=== PATIENT | female | born 1940 | race Caucasian/White ===

== ENCOUNTER 2016-09-30 14:47 | Inpatient (IN) | payer MEDICARE ==
--- NOTE | ~2016-09-30 | CN ---
Consultation Report [facility] [address] [place]. [address] NAME: ODILON SMITH : 42 STATUS : ADM IN [facility]#: [id number] AGE: 76 ADM/REG DATE : 09/30/16 MR#: [id number] REPORT SERV DATE: 10/02/16 DICTATED BY: SILVIANO ESQUIVEL DATE: 10/02/16 REPORT STATUS : Draft TRANSCRIBED BY: MODL DATE: 10/02/16 INFECTIOUS DISEASE CONSULTATION DATE OF CONSULTATION: 10/02/2016 REASON FOR CONSULTATION: Antibiotic recommendations. HISTORY OF PRESENT ILLNESS: This is a 76-year-old female with a past medical history notable for nonischemic cardiomyopathy, atrial fibrillation/flutter, Parkinson disease, diabetes, chronic kidney disease, and gastroesophageal reflux. She was admitted to the hospital on 09/30/2016 because of progressive redness, swelling and cellulitis changes of her right 2nd toe, nonresponsive to outpatient Augmentin. She says she had some chills as an outpatient, but no definite fevers. She had an x-ray of the foot on admission, which showed no evidence of osteomyelitis, but has been evaluated by Dr. Olivas of Orthopedics, who notes that she has a dorsal ulceration with exposed bone and plans for amputation of the toe this afternoon. The patient was placed on IV vancomycin on admission. She has been afebrile and has a normal white blood cell count. There is a cellulitis also of the foot as outlined below and a question of cellulitis of the lower leg. Of note, the patient also was found to have C. colitis back in May of this year. She tells me she has had no recent diarrhea problems. PAST MEDICAL HISTORY: As outlined above. In addition, she has bilateral total knee arthroplasties and right total hip arthroplasty. Other diagnoses include Raynaud syndrome, chronic pain on opioids, and osteoporosis and anxiety and depression. ALLERGIES: MULTIPLE ANTIBIOTIC ALLERGIES AND INTOLERANCES, BUT THE ONLY ANTIBIOTIC LISTED ERYTHROMYCIN. PRESENT MEDICATIONS: Here in the hospital in addition to IV vancomycin include Symmetrel, Cordarone, Caltrate, vitamin D, Sinemet, Cymbalta, Zetia, Pepcid, Lasix, Neurontin, insulin, Toprol, Percocet, Claritin, Protonix, Florastor or Spiriva. SOCIAL HISTORY: She lives in assisted living, is , ex-smoker nondrinker. FAMILY HISTORY: Noncontributory. REVIEW OF SYSTEMS: Again denies any diarrhea at present. No nausea or vomiting. Pain well controlled at present. PHYSICAL EXAMINATION: VITAL SIGNS: The patient weighs 79 kg. She is afebrile. Blood pressure 133/55, pulse 52, respiratory rate 14. She weighs 79 kg. Oxygen saturation 97% on 2 L. HEAD AND NECK: Exam is unremarkable. Consultation Report [address] [place]. [address] NAME: ODILON SMITH : 42 STATUS : ADM IN PAT#: [id number] AGE: 76 ADM/REG DATE : 09/30/16 MR#: [id number] REPORT SERV DATE: 10/02/16 DICTATED BY: SILVIANO ESQUIVEL DATE: 10/02/16 REPORT STATUS : Draft TRANSCRIBED BY: LUZMARIA DATE: 10/02/16 LUNGS: Clear to auscultation anteriorly. CARDIAC: Exam is without murmur, gallop, or rub. ABDOMEN: Obese, soft, and nontender. EXTREMITIES: The right second toe has diffuse edema and erythema with an ulcer. There are mild cellulitic changes on the dorsum of the foot at the base of the second toe extending somewhat more proximally onto the foot. The both lower legs have some chronic stasis changes. There is an irregular area of dark erythema of the right lower leg with a normal appearing skin between it and the foot and with somewhat similar changes on the left lower leg. There is mild warmth associated with this. She has a peripheral IV without phlebitis. LABORATORY STUDIES: Show a white blood cell count of 4.8, hemoglobin 12.1, platelets 158. Creatinine 1.05. Albumin 2.8. Liver function tests normal. Blood cultures on admission negative. IMPRESSION: Osteomyelitis of the right second toe with some mild associated cellulitis of the dorsum of the foot. The patient also has an area of erythema of the right lower leg, but I am not convinced. This is active infectious cellulitis given the patchy nature of it and the normal-appearing skin between it and the toe and foot. The patient also has history of C. diff colitis in May and has bilateral knee arthroplasties and hip arthroplasty. She is however non-ambulatory and gets around in a wheelchair. PLAN: 1. We will continue the IV vancomycin through her amputation later today. 2. I will discuss postoperative antibiotic options with Dr. Figueredo, in light of her recent C. diff colitis and the uncertainty of active cellulitis in the leg itself. In addition, her disposition after discharge may play a role in determining the best option for her. I do not think she needs a very long course of postoperative antibiotics. JUDY/LUZMARIA Silviano Esquivel M.D. / [id number] CC: Blank Borrero M.D.
--- NOTE | ~2016-09-30 | OP ---
Record Of Operation [facility] [address] [place]. [address] NAME: ESTHER MEJIA : 42 STATUS : ADM IN PAT#: [id number] AGE: 76 ADM/REG DATE : 09/30/16 MR#: [id number] REPORT SERV DATE: 10/03/16 DICTATED BY: MELA SHIELDS DATE: 10/03/16 REPORT STATUS : Draft TRANSCRIBED BY: MODAlcira DATE: 10/03/16 DATE OF PROCEDURE: 10/02/2016 PREOPERATIVE DIAGNOSES: 1. Right second toe osteomyelitis. 2. Right second rigid hammertoe. 3. Right chronic dorsal PIP joint ulceration. POSTOPERATIVE DIAGNOSES: 1. Right second toe osteomyelitis. 2. Right second rigid hammertoe. 3. Right chronic dorsal PIP joint ulceration. PROCEDURE: Right second toe amputation at the MTP joint. ANESTHESIA: General. COMPLICATIONS: None. INDICATION FOR OPERATION: Esther Mejia is a pleasant 76-year-old female, failed conservative treatment for the above-mentioned condition. Risks and benefits of surgical intervention were discussed at length with the patient. All of her questions were answered. She wished to proceed. DESCRIPTION OF PROCEDURE: Mrs. Mejia was brought back to the operating room, where general anesthesia was initiated. Right lower extremity was prepped and draped in usual sterile fashion. Esmarch ankle tourniquet was utilized. Proposed surgical incisions were drawn on the skin. This was an "elliptical incision" at the base of the toe. This was made proximal to the dorsal ulceration where we felt that the soft tissue was healthy. The incision was carried down to bone. We carefully disarticulated the toe at the MTP joint. The toe was placed on the back table. Tissue was taken from the area of infected bone and soft tissue. This was sent for culture. At this time, the tourniquet was removed and local vessels were cauterized. Subcutaneous tissue and skin were closed in a single layer with interrupted 2-0 nylon suture. Bulky sterile dressings were applied and a well-padded forefoot dressing was placed. The patient did well throughout the case. She woke in the operating room and was transferred to the recovery room in satisfactory condition. EVELYN/LUZMARIA Mlea Shields MD / [id number] Record Of [address] [place] [address] NAME: ESTHER MEJIA : 42 STATUS : ADM IN PAT#: [id number] AGE: 76 ADM/REG DATE : 09/30/16 MR#: [id number] REPORT SERV DATE: 10/03/16 DICTATED BY: MELA SHIELDS DATE: 10/03/16 REPORT STATUS : Draft TRANSCRIBED BY: MODL DATE: 10/03/16 CC: Blank Borrero M.D.
--- NOTE | ~2016-09-30 | CN ---
Consultation Report [facility] [address] [place]. [address] NAME: ESTHER MEJIA : 42 STATUS : ADM IN PAT#: [id number] AGE: 76 ADM/REG DATE : 09/30/16 MR#: [id number] REPORT SERV DATE: 10/02/16 DICTATED BY: MELA SHIELDS DATE: 10/02/16 REPORT STATUS : Draft TRANSCRIBED BY: MODAlcira DATE: 10/02/16 ORTHOPEDIC FOOT AND ANKLE CONSULTATION DATE OF CONSULTATION: 10/01/2016 REASON FOR CONSULTATION: Right second toe ulceration. HISTORY OF PRESENT ILLNESS: Esther Mejia is a pleasant 76-year-old female with past medical history significant for nonischemic cardiomyopathy, atrial fibrillation/flutter, Parkinson disease, diabetes with neuropathy, chronic kidney disease, GERD. Of note, she has also had left second toe amputation. She noted an ulceration on the dorsal aspect of her right second toe. This is a rigid hammertoe. This is an ulceration that currently extends down to bone. She states that at least over the past four to six weeks nonoperative treatment has been unsuccessful in treating this ulceration. She states that similar symptoms happened on her left foot for which she underwent operation. She has had no definitive fevers but admitted some chills as an outpatient. No additional complaints are noted. The patient has some cellulitis of the toe as well as the foot. There is also an area of relatively normal skin, which in more proximal to the normal skin is hyperpigmentation/cellulitic changes in the "gaiter" region of her lower leg. Of note, the patient had clostridium difficile colitis in 05/2016. No recent diarrhea problems. PAST MEDICAL HISTORY: See above. Bilateral total knee arthroplasty, right total hip, Raynaud syndrome, chronic pain, management requiring opioids, osteoporosis, anxiety, and depression. ALLERGIES: MULTIPLE ANTIBIOTIC ALLERGIES AND INTOLERANCES BUT THE ONLY ANTIBIOTIC LISTED IS ERYTHROMYCIN. MEDICATIONS: Current medications in the hospital included IV vancomycin, Symmetrel, Cordarone, Caltrate, vitamin D, Sinemet, Cymbalta, Zetia, Pepcid, Lasix, Neurontin, insulin, Toprol, Percocet, Claritin, Protonix, Florastor, and Spiriva. SOCIAL HISTORY: Lives in assisted living. She is she is an ex-smoker and nondrinker. FAMILY HISTORY: Noncontributory. REVIEW OF SYSTEMS: She is currently denying fevers, chills, nausea, vomiting, abdominal pain, shortness of breath, or chest pain. Consultation Report [place] [address] [place] [address] NAME: ESTHER MEJIA : 42 STATUS : ADM IN [facility]#: [id number] AGE: 76 ADM/REG DATE : 09/30/16 MR#: [id number] REPORT SERV DATE: 10/02/16 DICTATED BY: MELA SHIELDS DATE: 10/02/16 REPORT STATUS : Draft TRANSCRIBED BY: LUZMARIA DATE: 10/02/16 PHYSICAL EXAMINATION: VITAL SIGNS: Reveals that she is afebrile with temperature 98.3, pulse 57, respirations 20. She is 94% on room air. Her BMI is 26. GENERAL: She is alert and oriented x3. She is lying in the hospital bed and comfortable. HEENT: Her head is atraumatic. Pupils are equal to light and reactive. CHEST: Nonlabored breathing. HEART: Regular rhythm. ABDOMEN: Obese. EXTREMITIES: Cervical spine nontender to gentle range of motion. Bilateral upper extremities nontender to gentle range of motion. Bilateral lower extremities reveals no tenderness with gentle range of motion. Left lower extremity shows status post amputation of left second toe. No cellulitis. There is a left lateral heel ulceration. This approximately 4 to 5 cm in diameter. There is partial thickness. There is no exposed subcutaneous tissue, deep fascia or bone. This is on the posterior lateral aspect of her left heel. Right foot reveals a markedly edematous and erythematous right second toe. There is a rigid hammertoe deformity. There is a dorsal ulceration with exposed second metatarsal head. This is easily probes down to bone. There is some soft tissue in the wound. There is scant purulence. There is some erythema involving the dorsum of the foot. There is an area of relatively normal appearing skin over the ankle region. More proximal is in the "gaiter" region, there is a hyperpigmentation and what is quite frankly a cellulitic appearance. This stops at below the knee. X-RAYS: X-rays taken included 3 views of the right foot. It shows retrocalcaneal spur. No evidence of second toe osteomyelitis. LABS: Reveal white count of 5.4, hemoglobin 12. IMPRESSION: 1. Diabetes mellitus with neuropathy. 2. Right chronic second toe ulceration with exposed bone. 3. Right rigid second hammertoe. 4. Left lateral heel ulceration. PLAN: Lengthy discussion with the patient regarding her diagnosis and treatment options. On the right second toe, I recommend right second toe amputation. I did not feel that she will be capable of healing this as she has already failed an initial course of nonsurgical intervention. Due to the rigid nature of this toe and the exposed bone, I have recommended a right second MTP amputation. She has a palpable dorsalis pedis pulse. I suspect it should have ample blood supply to heal this amputation at this level. On the left heel, I recommended decubitus precautions with a heel offloading boot. Orders for this were given. Wound care nurse consultation was obtained and we will follow their instructions. Consultation Report [place] [id number] [facility] [address] [place]. [address] NAME: ESTHER MEJIA : 42 STATUS : ADM IN [facility]#: [id number] AGE: 76 ADM/REG DATE : 09/30/16 MR#: [id number] REPORT SERV DATE: 10/02/16 DICTATED BY: MELA SHIELDS DATE: 10/02/16 REPORT STATUS : Draft TRANSCRIBED BY: LUZMARIA DATE: 10/02/16 I had a lengthy discussion with the patient regarding all of these treatment options. All of her questions were thoroughly answered, and she wished to proceed with right second MTP joint level amputation. I appreciate the opportunity to participate in the care of this patient. Please feel free to call me on my cell phone at [phone] with additional questions or concerns. EVELYN/LUZMARIA Mela Shields MD / [id number] CC: Blank Borrero M.D.
--- NOTE | ~2016-09-30 | HP ---
History And Physical [place] [id number] [facility] [place]. [address] NAME: ODILON SMITH : 42 STATUS : ADM IN [facility]#: [id number] AGE: 76 ADM/REG DATE : 09/30/16 MR#: [id number] REPORT SERV DATE: 10/05/16 DICTATED BY: RAMYA BLANK DATE: 10/04/16 REPORT STATUS : Draft TRANSCRIBED BY: MODAlcira DATE: 10/04/16 DATE OF ADMISSION: 09/30/2016 CHIEF COMPLAINT: Right foot and leg cellulitis. HISTORY OF PRESENT ILLNESS: This is a 76-year-old female, who is a [employer] participant, who presented to the clinic with redness then warmth in the right foot and right leg. She had been seen earlier in the week and had been started on Augmentin to try to treat the cellulitis. The patient has a right second toe wound which has been ongoing for a few weeks. Since she failed treatment with Augmentin as an outpatient, she has been admitted to the hospital for IV antibiotics. PAST MEDICAL HISTORY: 1. Includes atrial fibrillation, paroxysmal. She is currently on anticoagulation with Eliquis for the same. 2. Nonischemic cardiomyopathy. Ejection fraction 40%. 3. Type 2 diabetes mellitus. 4. Chronic kidney disease stage 3. 5. Parkinson's disease. 6. Gastroesophageal reflux with a large hiatal hernia. 7. Chronic pain, on high dose opioids. 8. Anxiety and depression. 9. Osteoporosis. FAMILY HISTORY: Noncontributory. SOCIAL HISTORY: The patient currently lives at an assisted living facility. She is a nonsmoker, does not drink alcohol, and is . REVIEW OF SYSTEMS: She denied any recent changes in weight. No changes in appetite. No history of vision impairment or hearing loss recently. No swallowing difficulties. No complaints of chest pain. No complaints of shortness of breath. No complaints of palpitations. No complaints of abdominal pain, nausea, vomiting, constipation, or diarrhea. ALLERGIES: INCLUDE LESCOL AND SIMVASTATIN, WHICH CAUSE MYALGIA AND WEAKNESS; ERYTHROMYCIN, WHICH CAUSES STOMACH UPSET; MS CONTIN, WHICH LEADS TO PRURITUS; LISINOPRIL, WHICH CAUSES HYPERKALEMIA AND RENAL DYSFUNCTION; DITROPAN, WHICH LEADS TO HESITANCY. MEDICATION LIST: Includes: Align 1 tablet daily; amantadine 100 mg q.p.m.; amiodarone 200 mg twice a day; Artificial Tears p.r.n.; Augmentin 875 mg twice a day; Breo Ellipta 200/25 mcg 1 puff daily; cyclobenzaprine 5 mg 1 tablet daily; Cymbalta 60 mg 1 tablet twice a day; Dexilant 30 mg daily; DuoNeb p.r.n.; Eliquis 5 mg twice a day; Flonase 1 spray daily; Glutose gel 45 g 1 tube as needed p.r.n.; Incruse Ellipta 62.5 mcg 1 puff inhaler daily; potassium chloride 20 mEq daily; Lasix 40 mg 1 tablet daily; metformin 500 mg 2 tablets twice a day; Neurontin 400 mg 1 tablet 3 times a day; Percocet 5/325, 2 tablets 3 times History And Physical [address] [address] NAME: ODILON SMITH : 42 STATUS : ADM IN [facility]#: [id number] AGE: 76 ADM/REG DATE : 09/30/16 MR#: [id number] REPORT SERV DATE: 10/05/16 DICTATED BY: RAMYA BLANK DATE: 10/04/16 REPORT STATUS : Draft TRANSCRIBED BY: LUZMARIA DATE: 10/04/16 daily; Percocet 7.5 mg 2 tablets at bedtime; ranitidine 300 mg at bedtime; Sinemet 25/100 one tablet 3 times a day; Toprol-XL 100 mg 1 tablet daily; Viactiv twice a day; Zetia 10 mg daily; Zofran 4 mg q.8 hours p.r.n.; and Zyrtec 10 mg at bedtime. PHYSICAL EXAMINATION: VITAL SIGNS: Temperature 98, pulse 54, blood pressure 134/64, respirations 18, oxygen saturation was 94% on room air. GENERAL: Elderly, obese lady, lying in bed, in no acute distress. HEENT: No icterus or conjunctival injection noted. Head was normocephalic, atraumatic. NECK: Obese with restricted range of motion. LUNGS: Clear to auscultation. CARDIOVASCULAR: Regular rate and rhythm at this time. ABDOMEN: Soft, nontender, nondistended. Bowel sounds were present. EXTREMITIES: Right foot cellulitis with erythema and warmth extending onto lower leg too. There is a right second toe wound about 7 to 8 mm with some slough/purulent discharge in the bed and surrounding erythema and induration. Left heel also has a wound, which is a stage II pressure ulcer and is about 1 cm x 1 cm with small amount of serosanguineous discharge. Wound bed looks healthy. There is no surrounding erythema or inflammation. NEUROLOGIC: No tremor noted at this time. No cogwheeling or rigidity. She does have generalized weakness and is able to transfer from bed to power chair at baseline. LABORATORY DATA: Sodium 136, potassium 3.7, chloride 98, BUN 15, creatinine 0.97, glucose 149, calcium 8.6. WBCs 5.4, hemoglobin 12, hematocrit 37.7, platelets 155. did not reveal any acute injury. There was some tendinosis noted on the x-ray. ASSESSMENT AND PLAN: 1. Right foot and lower extremity cellulitis, likely secondary to the right second toe wound. This toe is a hammertoe. I will go ahead and get Podiatry to see her. This wound has been longstanding and has not been healing. It may be hard to heal just from its position on the dorsal aspect of the hammertoe. X-ray did not reveal osteomyelitis. We will also consult Infectious Diseases in the morning. Currently, the patient is on vancomycin, which was started last night on admission through the emergency room. 2. Paroxysmal atrial fibrillation. The patient is on anticoagulation with Eliquis. We will continue the same at this time. 3. Parkinson's disease. Continue current medications. 4. Diabetes mellitus. We will place her on sliding scale insulin and Accu-Cheks. 5. Congestive heart failure is compensated at this time. 6. Chronic pain. We will continue her home doses of Percocet and gabapentin. 7. Anxiety and depression. Continue current medications including Cymbalta. CODE STATUS: DNR, limited additional interventions. History And Physical [address] [place]. [address] NAME: ODILON SMITH : 42 STATUS : ADM IN [facility]#: [id number] AGE: 76 ADM/REG DATE : 09/30/16 MR#: [id number] REPORT SERV DATE: 10/05/16 DICTATED BY: RAMYA BLANK DATE: 10/04/16 REPORT STATUS : Draft TRANSCRIBED BY: LUZMARIA DATE: 10/04/16 MB/LUZMARIA Ramya Blank M.D. / [id number] CC: Blank Borrero M.D.
--- NOTE | ~2016-09-30 | DS ---
Discharge Summary [facility] [address] [place]. [address] NAME: ODILON SMITH : 42 STATUS : DIS IN PAT#: [id number] AGE: 76 ADM/REG DATE : 09/30/16 MR#: [id number] REPORT SERV DATE: 10/15/16 DICTATED BY: RAMYA BLANK DATE: 10/14/16 REPORT STATUS : Draft TRANSCRIBED BY: LUZMARIA DATE: 10/14/16 Data Collection from hospitalization DISCHARGE DIAGNOSES: 1. Cellulitis of the right lower extremity. 2. Osteomyelitis status post amputation of the right second toe. 3. Type 2 diabetes mellitus. 4. Morbid obesity. 5. Renal insufficiency. 6. Atrial fibrillation. 7. Nonischemic cardiomyopathy. 8. Stage 3 chronic kidney disease. 9. Parkinson's disease. 10.Gastroesophageal reflux disease. 11.Hiatal hernia. 12.Chronic pain. 13.Anxiety and depression. 14.Osteoporosis. CONSULTATIONS: Dr. Balaji Esquivel and Dr. Socrates Olivas. PROCEDURES: Right second toe amputation at the MTP joint on 10/02/2016. PATHOLOGY: Right second toe amputation - cellulitis, margins are viable. DISCHARGE MEDICATIONS: Symmetrel 100 mg at bedtime, Eliquis 5 mg twice a day, Cordarone 200 mg twice a day, Sinemet 1 tablet every 8 hours, Caltrate plus D 600 mg with breakfast and supper, Cymbalta 60 mg twice a day, Zetia 10 mg daily, Pepcid 40 mg at bedtime, Lasix 40 mg daily, Neurontin 400 mg every 8 hours, NovoLog injection insulin as instructed, Claritin 10 mg daily, Toprol-XL 100 mg daily, Percocet 10/325 two tablets every 8 hours as instructed, potassium chloride SR 20 mEq daily, Florastor 1 capsule twice a day, Spiriva 1 capsule via HandiHaler daily, Incruse Ellipta 1 puff via inhaler daily, Refresh Artificial Tears 1 drop in both eyes four times a day as needed, Flonase nasal spray 2 sprays nasally daily as needed, Glucophage 1000 mg with breakfast and supper, glucose tablets 3 to 6 tablets as needed, Zofran 4 mg every 8 hours as needed, DuoNeb 3 mL via inhaler every six hours as instructed, Breo Ellipta 1 puff via inhaler daily, and Artificial Tears 1 drop four times a day as needed. She was instructed not to continue Levemir. She was to also take doxycycline 100 mg one tablet twice a day for five days. CONDITION AT DISCHARGE: Stable. DISPOSITION: The patient was discharged to [facility] on a diabetic diet with activities as instructed. HOSPITAL COURSE: This is a 76-year-old female, who is a [facility] participant and presented to the clinic with redness and warmth of the right foot and right leg. She was seen earlier in the week, and had been started on Augmentin to try and treat the cellulitis. She has a right second toe wound which had been ongoing for few weeks. She said she felt treatment Discharge Summary [address] [place]. [address] NAME: ODILON SMITH : 42 STATUS : DIS IN [facility]#: [id number] AGE: 76 ADM/REG DATE : 09/30/16 MR#: [id number] REPORT SERV DATE: 10/15/16 DICTATED BY: RAMYA BLANK DATE: 10/14/16 REPORT STATUS : Draft TRANSCRIBED BY: LUZMARIA DATE: 10/14/16 with Augmentin as an outpatient. She had been admitted to the hospital for IV antibiotics. She was admitted to the hospital at this time for further evaluation and treatment. Upon admission, x-ray did not reveal osteomyelitis. The patient was on vancomycin. Eliquis had being given for anticoagulation, and this was continued. Her current Parkinson's disease medications were continued. She was placed on sliding scale insulin. Her congestive heart failure is compensated at this time. She does have chronic pain and we continued her home doses of Percocet and gabapentin. Cymbalta was continued as well as her current medications for anxiety and depression. The following day, she was seen by Dr. Socrates Olivas regarding the right second toe ulceration. The patient has had a left second toe amputation. She had noticed an ulceration on the dorsal aspect of her right second toe. This has a rigid hammertoe. This is an ulceration that currently extends down to the bone. She said that at least over the past four to six weeks nonoperative treatment had been unsuccessful in treating this ulceration. She said that similar symptoms happened on the left foot, for which she underwent operation. The patient has a history of Clostridium difficile colitis in May of 2016. She had no recent problems with diarrhea. Her right foot revealed a markedly edematous and erythematous right second toe. There was a rigid hammertoe deformity and dorsal ulceration which exposed the second metatarsal head. This easily probed down to the bone. There was some soft tissue in the wound. There was scant purulence. There was some erythema involving the dorsum of the foot. There was an area of relatively normal appearing skin over the ankle region. X-rays showed retrocalcaneal spur. There was no evidence of second toe osteomyelitis. A long discussion was held with the patient regarding her diagnosis and treatment options. He recommended a second toe amputation on the right. He did not feel she would be capable of healing this as she had already failed an initial course of nonsurgical intervention. Due to the rigid nature of this toe and the exposed bone, it was recommended that a right second MTP amputation to be performed. She has a palpable dorsalis pedis pulse. It was suspected that she would have ample blood supply to heal this amputation at this level. On the left heel, he recommended decubitus precautions with heel offloading boot. On 10/02/2016, the patient was seen by Dr. Balaji Esquivel for antibiotic recommendations. The patient had been placed on IV vancomycin on admission. She had been afebrile and had a normal white blood cell count. There was cellulitis of the foot, and a question of cellulitis of the lower legs. She says she has had no recent diarrhea problems. She had C. difficile colitis back in May of this year. His impression included osteomyelitis of the right second toe with some mild associated cellulitis of the dorsum of the foot. The patient also has an area of erythema of the right lower leg. This was active infectious cellulitis, given the patchy nature of it and the normal appearing skin between it, and the toe, and foot. IV vancomycin was continued. Postoperative antibiotic options would be discussed. He did not think she would need a very long course of postoperative antibiotics. She was taken to the operating room by Dr. Olivas, where she underwent the above-mentioned procedures. She tolerated this well and there were no complications. On postop day #1, she had no new complaints. Her dressings were clean, dry, and intact. Daily dry dressing changes to the right foot would be performed. A heel offloading boot would be placed for the left heel. White count was 5.1. She was afebrile. Right foot dressing was intact. Staph was growing on the surgical specimen, blood cultures were negative. Levemir was added to her regimen. Eliquis was continued. The next day, she Discharge Summary [facility] [id number] [place]. [address] NAME: ODILON SMITH : 42 STATUS : DIS IN PAT#: [id number] AGE: 76 ADM/REG DATE : 09/30/16 MR#: [id number] REPORT SERV DATE: 10/15/16 DICTATED BY: RAMYA BLANK DATE: 10/14/16 REPORT STATUS : Draft TRANSCRIBED BY: MODL DATE: 10/14/16 remained afebrile. Creatinine level was 1.02. Operative cultures had revealed MRSA. She denied any pain. IV vancomycin was continued for now. Occupational therapy evaluated the patient. Discharge planning was performed. Lantus was added to her regimen. On 10/05/2016, she had no acute complaints. Her lungs were clear. She was placed on doxycycline. Discharge instructions were given. Due to her improved and stable condition, she was discharged to [facility] with the above-stated instructions. Information collected by: Magdalena Patel I submit the above information as my discharge summary. NATALIE/LUZMARIA Ramya Blank M.D. / [id number] CC: Blank Borrero M.D. Matthew M. Buchanan, MD Hal Hill, M.D. [facility]
[~2016-09-30 14:47] MED LIST: ADOXA100 MG PO; ADVAIR250 INH; ANUSOL-HC25 MG RE; ASMANEX200 INH; AT25 PO; ATV.5 PO; ATV1 PO; AUG875 PO; BENTYL10 PO; BIOTENE SPRAY OR; BROMFENAC OP; BYETTA SC; BYETTA10 SC; C5 PO; CALMOSEPTINE EX; CALMOSEPTINE O2.5 OZ T; CAPSAICIN 0.075% EX; CARDCD120 PO; CARDCD240 PO; CEFT5 PO; CEPACOL SORE MT; CLARIT10 PO; CLINDA150 PO; CONSTULOSE PO; CORDARONE PO; COUMADIN4 MG PO; COZ25 PO; CYANO1000T PO; CYMBALTA60 PO; DEXILANT PO; DIABET2.5 PO; DITROXL5 PO; DOLOPHINE10 MG PO; DORYX150 MG PO; DRISDOL50000 UNT PO; DUONEB INH; DURICEF PO; ELIQUIS 5 MG TAB5 MG PO; ENULOSE PO; ESTRACE0.5 MG PO; ESTRACE1 MG PO; ESTRADIOL0.05 MG TD; ESTRADIOL0.5 MG OR; Estradiol PO; FERRETTS325 MG PO; FERROUS SULF325 M1 PO; FLECTOR1.3 % TOP; FLEXERIL5 MG PO; FLONASE NAS; FLOVENT110 INH; GARACR15 TOP; GLUCOPHAGE1000 MG PO; GLUCOPHXR PO; GLUCOSE GEL PO; GLUCOSE OR; GLUCOSE TABLET PO; GLUCOTROL5 PO; GLUCPH PO; GLUTOSE GEL; GLUTOSE GEL PO; GLUTOSE GEL T; HYDROCORT12 EX; JANTOVEN3 MG PO; KAPIDEX30 MG PO; KAPIDEX60 MG PO; KLOR-CON 1010 MEQ PO; KLOR-CON M2020 MEQ PO; KLYTECL PO; L20 PO; L40 PO; L80 PO; LAN125 PO; LEVAQUIN750 MG PO; LEVSINTAB PO; LIDODERM T; LIOR10 PO; LIQUID TEARS OPH; LOTEMAX OPH SUSP5 ML OPH; LOVENOX120 SC; LOVENOX40 SC; METHATAB10 PO; METHATAB5B PO; MSCONTIN PO; MUSCLE RUB T; NATURA2 OPH; NEUR400 PO; NEUR600 PO; NEUR800 PO; OXYCOD PO; PAROXETINE HCL PO; PAX20 PO; PAXIL40 MG PO; PCET PO; PEP20 PO; PERCOCET 7.5/321 TAB PO; PERCOCET1 TA2 PO; PERCOCET1 TA4 PO; PERFOROM INH; PLAVIX PO; PR25 PO; PREV30 PO; PROAIR HFA INH; PROTONIX PO; PROVENTSOL INH; PULRESP.5 INH; RANITIDINE300 MG PO; RECLAST IV; REFRESH1 % OP; ROBITUSS12 OR; ROCEPH IM; SANTYL250 MG/GM TOP; SENTAB PO; SEROQUEL50 MG PO; SILVADENE1 % TOP; SILVASORB TOP; SIN25 PO; SYMAX-SL0.125 MG SL; SYMM100 PO; TEARS NATURA OPH; TOPXL25 PO; TOPXL50 PO; VASOTEC5 PO; VENTOLIN HFA INH; VIACTIV PO; VIACTIVE PO; VITAMIN B-121000 MC1 SL; VITD PO; VOLTAREN TOP; ZANTAC300 MG PO; ZETIA PO; ZOFRAN ODT4 MG PO; ZOFRAN4 PO; ZYRTEC ALLGY10 MG PO; ZYVOXPO PO; [UNRECOGNIZED DRUG - OTHER]; [UNRECOGNIZED DRUG - SUPPLY] T
[2016-09-30 15:15] LABS: BASOPHILS 0.2 %; BASOPHILS ABSOLUTE 0.01 10/3/uL (0.0-0.16); EOSINOPHILS 1.6 %; ER CBC TAT 0 Hrs 05 Mins; HEMATOCRIT 39.5 % (36.0-48.0); HEMOGLOBIN 12.5 g/dL (12.0-16.0); IMMATURE GRANULOCYTES 0.3 %; IMMATURE GRANULOCYTES ABSOLUTE 0.02 10/3/uL (0.0-0.11); LYMPHOCYTES 12.1 %; LYMPHOCYTES ABSOLUTE 0.76 10/3/uL (0.67-4.30); MEAN CORPUS HGB CONC 31.6 g/dL (32.0-36.0); MEAN CORPUSCULAR HEMOGLOB 31.1 pg (26.0-34.0); MEAN PLATELET VOLUME 9.7 fL (9.2-13.0); MONOCYTES 9.4 %; MONOCYTES ABSOLUTE 0.59 10/3/uL (0.21-1.20); NEUTROPHILS 76.4 %; NEUTROPHILS ABSOLUTE 4.79 10/3/uL (2.02-8.40); PLATELET COUNT 164 10/3/uL (150-400); RBC DISTRIBUTION WIDTH 13.6 % (12.0-16.0); RED CELL COUNT 4.02 10/6/uL (4.0-5.6); WHITE BLOOD CELLS 6.3 10/3/uL (4.5-10.5)
[2016-09-30 15:16] LABS: MANUAL DIFF NO %; MEAN CORPUSCULAR VOLUME 98.3 fL (80-100)
[2016-09-30 15:27] LABS: BUN (BLOOD UREA NITROGEN) 16 MG/DL (6-23); CALCIUM, SERUM 8.6 MG/DL (8.5-10.4); CHLORIDE, SERUM 95 MMOL/L (96-112); CO2 (CARBON DIOXIDE) 33 MMOL/L (24-34); GFR AFRICAN AMERICAN 57 ML/MIN (>=60); GFR NON AFRICAN AMERICAN 49 ML/MIN (>=60); GLUCOSE, SERUM 158 MG/DL (60-99); SODIUM, SERUM 136 MMOL/L (135-148)
[2016-09-30 15:31] LABS: LACTATE 2.9 MMOL/L (0.3-2.4)
[2016-09-30] MEDS ORDERED: AUG875 PO (18:20)
[2016-09-30] MEDS ORDERED: SIN25 PO (18:21)
[2016-09-30] MEDS ORDERED: ALIGN4 MG PO (18:21)
[2016-09-30] MEDS ORDERED: NEUR400 PO (18:21)
[2016-09-30] MEDS ORDERED: ZETIA PO (18:21)
[2016-09-30] MEDS ORDERED: ZANTAC300 MG PO (18:21)
[2016-09-30] MEDS ORDERED: TOPXL100 PO (18:22)
[2016-09-30] MEDS ORDERED: SYMM100 PO (18:22)
[2016-09-30] MEDS ORDERED: FLEXERIL5 MG PO (18:22)
[2016-09-30] MEDS ORDERED: PERCOCET 10/3251 TAB PO (18:22)
[2016-09-30] MEDS ORDERED: KLOR-CON M2020 MEQ PO (18:23)
[2016-09-30] MEDS ORDERED: BREO ELLIPTA 21 EACH INH (18:23)
[2016-09-30] MEDS ORDERED: INCRUSE ELLI62.5 MCG INH (18:23)
[2016-09-30] MEDS ORDERED: ZYRTEC ALLGY10 MG PO (18:23)
[2016-09-30] MEDS ORDERED: DUONEB INH (18:23)
[2016-09-30] MEDS ORDERED: L40 PO (18:24)
[2016-09-30] MEDS ORDERED: GLUCOPHAGE1000 MG PO (18:24)
[2016-09-30] MEDS ORDERED: CYMBALTA60 PO (18:24)
[2016-09-30] MEDS ORDERED: ELIQUIS 5 MG TAB5 MG PO (18:24)
[2016-09-30] MEDS ORDERED: KAPIDEX30 MG PO (18:25)
[2016-09-30] MEDS ORDERED: ZOFRAN4 PO (18:25)
[2016-09-30] MEDS ORDERED: CORDARONE PO (18:25)
[2016-09-30] MEDS ORDERED: VIACTIV PO (18:26)
[2016-09-30] MEDS ORDERED: FLONASE NAS (18:27)
[2016-09-30] MEDS ORDERED: TEARS PURE OPH (18:27)
[2016-10-01 04:50] LABS: BASOPHILS 0.2 %; BASOPHILS ABSOLUTE 0.01 10/3/uL (0.0-0.16); EOSINOPHILS 0.9 %; EOSINOPHILS ABSOLUTE 0.05 10/3/uL (0.0-0.53); HEMATOCRIT 37.7 % (36.0-48.0); IMMATURE GRANULOCYTES 0.2 %; IMMATURE GRANULOCYTES ABSOLUTE 0.01 10/3/uL (0.0-0.11); LYMPHOCYTES 13.2 %; LYMPHOCYTES ABSOLUTE 0.71 10/3/uL (0.67-4.30); MEAN CORPUS HGB CONC 31.8 g/dL (32.0-36.0); MEAN CORPUSCULAR HEMOGLOB 31.3 pg (26.0-34.0); MEAN CORPUSCULAR VOLUME 98.2 fL (80-100); MEAN PLATELET VOLUME 10.3 fL (9.2-13.0); MONOCYTES 7.2 %; MONOCYTES ABSOLUTE 0.39 10/3/uL (0.21-1.20); NEUTROPHILS 78.3 %; NEUTROPHILS ABSOLUTE 4.22 10/3/uL (2.02-8.40); PLATELET COUNT 155 10/3/uL (150-400); RBC DISTRIBUTION WIDTH 13.5 % (12.0-16.0); RED CELL COUNT 3.84 10/6/uL (4.0-5.6); WHITE BLOOD CELLS 5.4 10/3/uL (4.5-10.5)
[2016-10-01 04:53] LABS: MANUAL DIFF NO %
[2016-10-01 05:06] LABS: A/G RATIO 0.8 (0.7-1.9); ALBUMIN 2.8 G/DL (3.5-5.0); BUN (BLOOD UREA NITROGEN) 15 MG/DL (6-23); CHLORIDE, SERUM 98 MMOL/L (96-112); CO2 (CARBON DIOXIDE) 33 MMOL/L (24-34); CREATININE 0.97 MG/DL (0.55-1.02); GFR AFRICAN AMERICAN 66 ML/MIN (>=60); GFR NON AFRICAN AMERICAN 57 ML/MIN (>=60); GLOBULIN 3.4 G/DL (2.5-4.1); GLUCOSE, SERUM 149 MG/DL (60-99); POTASSIUM, SERUM 3.7 MMOL/L (3.5-5.3); SGOT(AST) 20 U/L (5-40); SGPT(ALT) 9 U/L (5-65); SODIUM, SERUM 136 MMOL/L (135-148); TOTAL BILIRUBIN 0.4 MG/DL (0-1.2); TOTAL PROTEIN 6.2 G/DL (6.0-8.5)
[2016-10-01 05:07] LABS: ALKALINE PHOSPHATASE 64 U/L (45-117)
[2016-10-02 04:35] LABS: BASOPHILS 0.2 %; BASOPHILS ABSOLUTE 0.01 10/3/uL (0.0-0.16); EOSINOPHILS 2.1 %; HEMATOCRIT 39.6 % (36.0-48.0); HEMOGLOBIN 12.1 g/dL (12.0-16.0); IMMATURE GRANULOCYTES 0.6 %; IMMATURE GRANULOCYTES ABSOLUTE 0.03 10/3/uL (0.0-0.11); LYMPHOCYTES 16.6 %; LYMPHOCYTES ABSOLUTE 0.79 10/3/uL (0.67-4.30); MEAN CORPUS HGB CONC 30.6 g/dL (32.0-36.0); MEAN CORPUSCULAR HEMOGLOB 30.3 pg (26.0-34.0); MEAN CORPUSCULAR VOLUME 99.2 fL (80-100); MEAN PLATELET VOLUME 9.9 fL (9.2-13.0); MONOCYTES 10.5 %; NEUTROPHILS ABSOLUTE 3.32 10/3/uL (2.02-8.40); PLATELET COUNT 158 10/3/uL (150-400); RBC DISTRIBUTION WIDTH 13.5 % (12.0-16.0); RED CELL COUNT 3.99 10/6/uL (4.0-5.6); WHITE BLOOD CELLS 4.8 10/3/uL (4.5-10.5)
[2016-10-02 04:37] LABS: MANUAL DIFF NO %
[2016-10-02 04:51] LABS: BUN (BLOOD UREA NITROGEN) 14 MG/DL (6-23); CALCIUM, SERUM 8.4 MG/DL (8.5-10.4); CHLORIDE, SERUM 97 MMOL/L (96-112); CO2 (CARBON DIOXIDE) 33 MMOL/L (24-34); CREATININE 1.05 MG/DL (0.55-1.02); GFR AFRICAN AMERICAN 60 ML/MIN (>=60); GFR NON AFRICAN AMERICAN 52 ML/MIN (>=60); POTASSIUM, SERUM 4.1 MMOL/L (3.5-5.3); SODIUM, SERUM 135 MMOL/L (135-148)
[2016-10-02 04:54] LABS: GLUCOSE, SERUM 185 MG/DL (60-99)
[2016-10-03 06:56] LABS: BASOPHILS 0.2 %; BASOPHILS ABSOLUTE 0.01 10/3/uL (0.0-0.16); EOSINOPHILS 1.6 %; EOSINOPHILS ABSOLUTE 0.08 10/3/uL (0.0-0.53); HEMATOCRIT 39.2 % (36.0-48.0); HEMOGLOBIN 12.2 g/dL (12.0-16.0); IMMATURE GRANULOCYTES 0.6 %; IMMATURE GRANULOCYTES ABSOLUTE 0.03 10/3/uL (0.0-0.11); LYMPHOCYTES 13.1 %; LYMPHOCYTES ABSOLUTE 0.67 10/3/uL (0.67-4.30); MANUAL DIFF NO %; MEAN CORPUS HGB CONC 31.1 g/dL (32.0-36.0); MEAN CORPUSCULAR VOLUME 99.7 fL (80-100); MEAN PLATELET VOLUME 9.7 fL (9.2-13.0); MONOCYTES 11.2 %; MONOCYTES ABSOLUTE 0.57 10/3/uL (0.21-1.20); NEUTROPHILS 73.3 %; NEUTROPHILS ABSOLUTE 3.75 10/3/uL (2.02-8.40); PLATELET COUNT 159 10/3/uL (150-400); RBC DISTRIBUTION WIDTH 13.7 % (12.0-16.0); RED CELL COUNT 3.93 10/6/uL (4.0-5.6); WHITE BLOOD CELLS 5.1 10/3/uL (4.5-10.5)
[2016-10-03 07:05] LABS: BUN (BLOOD UREA NITROGEN) 16 MG/DL (6-23); CALCIUM, SERUM 8.1 MG/DL (8.5-10.4); CHLORIDE, SERUM 96 MMOL/L (96-112); CO2 (CARBON DIOXIDE) 36 MMOL/L (24-34); CREATININE 1.14 MG/DL (0.55-1.02); GFR AFRICAN AMERICAN 54 ML/MIN (>=60); GFR NON AFRICAN AMERICAN 47 ML/MIN (>=60); GLUCOSE, SERUM 178 MG/DL (60-99); POTASSIUM, SERUM 4.2 MMOL/L (3.5-5.3); SODIUM, SERUM 135 MMOL/L (135-148)
[2016-10-04 06:22] LABS: BUN (BLOOD UREA NITROGEN) 16 MG/DL (6-23); CALCIUM, SERUM 8.6 MG/DL (8.5-10.4); CHLORIDE, SERUM 94 MMOL/L (96-112); CO2 (CARBON DIOXIDE) 33 MMOL/L (24-34); CREATININE 1.02 MG/DL (0.55-1.02); GFR AFRICAN AMERICAN 62 ML/MIN (>=60); GFR NON AFRICAN AMERICAN 54 ML/MIN (>=60); GLUCOSE, SERUM 199 MG/DL (60-99); POTASSIUM, SERUM 4.2 MMOL/L (3.5-5.3); SODIUM, SERUM 133 MMOL/L (135-148)
[2016-10-05 05:16] LABS: BASOPHILS 0.2 %; BASOPHILS ABSOLUTE 0.01 10/3/uL (0.0-0.16); EOSINOPHILS 1.8 %; HEMATOCRIT 39.8 % (36.0-48.0); HEMOGLOBIN 12.3 g/dL (12.0-16.0); IMMATURE GRANULOCYTES 0.6 %; IMMATURE GRANULOCYTES ABSOLUTE 0.03 10/3/uL (0.0-0.11); LYMPHOCYTES 18.5 %; LYMPHOCYTES ABSOLUTE 1.01 10/3/uL (0.67-4.30); MEAN CORPUS HGB CONC 30.9 g/dL (32.0-36.0); MEAN CORPUSCULAR HEMOGLOB 30.6 pg (26.0-34.0); MEAN PLATELET VOLUME 9.9 fL (9.2-13.0); MONOCYTES 9.5 %; MONOCYTES ABSOLUTE 0.52 10/3/uL (0.21-1.20); NEUTROPHILS 69.4 %; NEUTROPHILS ABSOLUTE 3.78 10/3/uL (2.02-8.40); PLATELET COUNT 153 10/3/uL (150-400); RBC DISTRIBUTION WIDTH 13.8 % (12.0-16.0); RED CELL COUNT 4.02 10/6/uL (4.0-5.6); WHITE BLOOD CELLS 5.5 10/3/uL (4.5-10.5)
[2016-10-05 05:19] LABS: MANUAL DIFF NO %
[2016-10-05 05:35] LABS: BUN (BLOOD UREA NITROGEN) 18 MG/DL (6-23); CALCIUM, SERUM 8.6 MG/DL (8.5-10.4); CHLORIDE, SERUM 95 MMOL/L (96-112); CO2 (CARBON DIOXIDE) 33 MMOL/L (24-34); CREATININE 0.96 MG/DL (0.55-1.02); GFR AFRICAN AMERICAN 67 ML/MIN (>=60); GFR NON AFRICAN AMERICAN 58 ML/MIN (>=60); GLUCOSE, SERUM 164 MG/DL (60-99); POTASSIUM, SERUM 4.6 MMOL/L (3.5-5.3); SODIUM, SERUM 134 MMOL/L (135-148)
== END 2016-10-05 15:21 | DRG 617 ==
LOC: ER 14:47 → 4SO 17:43
PROVIDERS: Hospitalist; Internal Medicine Geriatric Medicine; Nurse Practitioner; Orthopaedic Surgery Foot and Ankle Surgery
PROC: 0Y6R0Z1 Detachment at Right 2nd Toe, High, Open Approach (ICD-10-PCS; principal; 2016-10-02 14:45)
DX: E11.69 Type 2 diabetes mellitus with other specified complication (principal); L03.115 Cellulitis of right lower limb; I42.8 Other cardiomyopathies; E11.22 Type 2 diabetes mellitus with diabetic chronic kidney disease; I13.0 Hypertensive heart and chronic kidney disease with heart failure and stage 1 through stage 4 chronic kidney disease, or unspecified chronic kidney disease; I50.9 Heart failure, unspecified; I48.92 Unspecified atrial flutter; M86.8X7 Other osteomyelitis, ankle and foot; E11.621 Type 2 diabetes mellitus with foot ulcer; E11.51 Type 2 diabetes mellitus with diabetic peripheral angiopathy without gangrene; Z66 Do not resuscitate; L97.514 Non-pressure chronic ulcer of other part of right foot with necrosis of bone; E11.65 Type 2 diabetes mellitus with hyperglycemia; N18.3 Chronic kidney disease, stage 3 (moderate); G89.29 Other chronic pain; K21.9 Gastro-esophageal reflux disease without esophagitis; K44.9 Diaphragmatic hernia without obstruction or gangrene; Z79.84 Long term (current) use of oral hypoglycemic drugs; Z79.4 Long term (current) use of insulin; Z79.891 Long term (current) use of opiate analgesic; F41.9 Anxiety disorder, unspecified; F32.9 Major depressive disorder, single episode, unspecified; I48.0 Paroxysmal atrial fibrillation; Z88.1 Allergy status to other antibiotic agents; Z88.5 Allergy status to narcotic agent; Z88.8 Allergy status to other drugs, medicaments and biological substances; Z79.01 Long term (current) use of anticoagulants; G20 Parkinson's disease; L89.622 Pressure ulcer of left heel, stage 2; Z96.653 Presence of artificial knee joint, bilateral; I73.00 Raynaud's syndrome without gangrene; Z99.3 Dependence on wheelchair; Z96.641 Presence of right artificial hip joint; M20.41 Other hammer toe(s) (acquired), right foot; B95.62 Methicillin resistant Staphylococcus aureus infection as the cause of diseases classified elsewhere
CPT/HCPCS: 73630-RT; 80048; 80053; 80202; 82962; 83605; 85025; 87040; 87070; 87075; 87077; 87186; 87205; 88305; 88311; 94640; 96365; 97161-GP; 97167-GO; 99285; A9270-GY; J2405; J3010; J3370